=== PATIENT | female | born 1980 | race Caucasian/White ===

== ENCOUNTER 2024-05-05 13:42 | Outpatient (CLI) | payer MEDICAID, SELFPAY ==
[2024-05-05] VITALS (7 sets, daily range): BP systolic 133–161; BP diastolic 77–98; PULSE 100–112; RESP 16; O2SAT 99–100
--- NOTE | 2024-05-05 14:57 | P.GSCN_ITS ---
History of Present Illness Consult details Date Seen: 05/05/24 Consult date: 05/05/24 Narrative: Patient is a 43-year-old female with a history of alcoholic cirrhosis who presents with abdominal ascites. She is followed by [facility] with recommendations for paracentesis. She does usually get this performed on a weekly basis down in [place]. She was scheduled to have it done on Thursday but they had no openings in their clinic. She has never had any issues was fluid removed before. She usually has around 6 L removed per time. Her abdominal surgical history is positive for x2. She denies any new abdominal pain or fevers. Her biggest complaint is abdominal discomfort and shortness of breath. Review of Systems Status of ROS: Reports: 6 or more systems reviewed and unremarkable except as noted in History and below Meds Home Medications and Allergies Allergies Allergy/AdvReac Type Severity Reaction Status Date / Time clonazepam Allergy Verified 05/05/24 14:14 NSAIDS (Non-Steroidal Allergy Verified 05/05/24 14:14 Anti-Inflamma shellfish derived Allergy Verified 05/05/24 14:14 Sulfa (Sulfonamide Allergy Verified 05/05/24 14:14 Antibiotics) Exam Narrative: Exam Narrative: General: Alert and oriented, no acute distress. HEENT: Scleral icterus Abdomen: Obese abdomen, edema of the abdominal wall, positive fluid shift consistent with ascites. Results Labs Labs: Labs from 04/27/2024 reviewed. Hemoglobin 10.3, platelets 92. INR 1.4 General Surgery Procedures Paracentesis Time out performed: Yes Imaging guidance used: Yes Indication: Ascites Procedure: therapeutic paracentesis Location: RLQ Local anesthetic used: lidocaine 1% Bedside ultrasound used: yes, Ascites confirmed and location marked Preparation: 11 blade used to make rachel in skin Amount of fluid obtained (ml): 5,900 Fluid: other (Serous) Post procedure exam: awake, alert, normal BP, normal HR and normal SpO2 Patient tolerated procedure: well Complications: none Additional comments: Vial of albumin given. Progress Note:A&P Assessment and plan (1) Abdominal ascites: Status: Acute Assessment and Plan: Patient presents for paracentesis. She has a history of ascites secondary to alcoholic liver disease. Risks and benefits of procedure were discussed at length with the patient. Risks included, but were not limited to: Bleeding, infection, risk of damage to underlying structures and possible need for additional procedures. All questions and concerns were addressed with patient agreeing to proceed. Patient tolerated procedure well. A total of 5.9 L was removed. She was instructed to present to the emergency department with any new onset abdominal pain or fevers.
[2024-05-05] MEDS: ALBUMIN HUMAN 25% 100 ML VIAL IV (15:17)
== END 2024-05-05 15:18 | disposition home or self-care (01) ==
LOC: US 13:43
PROVIDERS: PCP Nurse Practitioner Family; Visit Provider Surgery
DX: K70.31 Alcoholic cirrhosis of liver with ascites (principal)
CPT/HCPCS: 49083; P9047

== ENCOUNTER 2024-06-20 10:50 | Outpatient (CLI) | payer MEDICAID, SELFPAY ==
[2024-06-20 11:27] VITALS: BP 157/84; PULSE 107; TEMP 36.5; O2SAT 96
[2024-06-20 12:01] VITALS: BP 132/57; PULSE 98; RESP 18; O2SAT 98
[2024-06-20 12:10] VITALS: BP 122/66; PULSE 103; RESP 18; O2SAT 97
--- NOTE | 2024-06-20 12:13 | P.PCN_ITS ---
Procedure Note Time Seen by Provider: 12:13 Date Seen: 06/20/24 Provider Contact Time: 12:13 Date of procedure: 06/20/24 Will [facility] bill your pro fee for this procedure?: Yes Pre-op diagnosis: Ascites Post-op diagnosis: same Procedure: Paracentesis Procedure Description: With the patient in the recumbent position we did localize ascites particularly in the right hemiabdomen with direct ultrasound guidance. The area was then sterilely prepared and anesthetized with 1% lidocaine. I made a 1 cm incision through which I inserted the paracentesis needle and catheter into the area of ascites. Flow was directed to a series of back in her bowels until 3 L have been removed. The catheter was then removed and the incision was sterilely closed with Vicryl and Dermabond. Patient did receive 2 units of albumin during her paracentesis. Anesthesia: none Surgeon: Feroz Estimated blood loss (mL): 5 Pathology: specimen obtained, sent to pathology Condition: stable Disposition: other
[2024-06-20] MEDS: ALBUMIN HUMAN 25% 100 ML VIAL IVPB (12:15)
[2024-06-20] MEDS: ALBUMIN HUMAN 25% 25 GM/100 ML VIAL IVPB (13:33)
[2024-06-20 13:41] LABS: BF Clarity* Slightly Cloudy; BF Color Blood Tinged; BF Total Volume* 5
[2024-06-20 13:42] LABS: Mononuclear WBC Body Fluid* 87 %; Polynuclear WBC Body Fluid* 13 %; RBC, Body Fluid* 15000 Cells/uL; WBC, Body Fluid* 190 Cells/uL
[2024-06-20 13:53] LABS: Albumin Body Fluid* < 0.1 gm/dL; Amylase Body Fluid* < 30 U/L; Body Fluid Total Protein* < 0.2 gm/dL; Glucose Body Fluid* 186 mg/dL; LDH Body Fluid* 71 U/L
== END 2024-06-20 12:42 | disposition home or self-care (01) ==
LOC: US 10:51
PROVIDERS: Internal Medicine; PCP Nurse Practitioner Family; Visit Provider Surgery
DX: K70.31 Alcoholic cirrhosis of liver with ascites (principal)
CPT/HCPCS: 49083; 80053; 82042; 82150; 82945; 83615; 84155; 84157; 85025; 87070; 87205; 88112; 88305; 89051; P9047

== ENCOUNTER 2024-07-13 11:14 | Outpatient (CLI) | payer MEDICAID, SELFPAY ==
[2024-07-13 11:24] VITALS: BP 143/83; PULSE 82; RESP 16; TEMP 36.4; O2SAT 94
--- NOTE | 2024-07-13 11:47 | W.PM.PARA ---
Paracentesis Date Date: 07/13/24 Procedure Note Procedure: Paracentesis with Ultrasound Guidance Type of paracentesis: Therapeutic Initial or Repeat?: Repeat Surgeon: Luz Hines Indications: The patient is a 43-year-old female with alcoholic cirrhosis and ascites. She has been undergoing paracentesis for symptomatic management. Most recent paracentesis was done on 07/07/2024 in [place]. 5.3 L were removed at that time. The patient continues to complain of abdominal distension and fluid reaccumulation and she presents for repeat paracentesis. Risks and benefits were discussed with the patient and she agreed to proceed. On exam, vital signs are stable with normal heart rate and blood pressure. Abdomen is markedly protuberant however not tense. Labs and Cytology Sent:: No Albumin infused: Yes ( One bottle of 25% albumin was infused.) Procedure Note:: Prior to the procedure, the risks and benefits of the procedure were discussed and an informed consent was obtained. Patient identification was confirmed and TIME OUT was performed. An ultrasound was brought onto the field and an easily accessible pocket of ascites was identified that was away from intraabdominal organs. The patient's abdomen in the The right upper/ lateral abdomen was prepped and draped in the usual sterile fashion. 1% Lidocaine was used to anesthetize the skin, soft tissues and peritoneum over the proposed needle insertion site. The patient's abdominal wall was fairly thick and a spinal needle was used to anesthetize the peritoneum. This was done under ultrasound guidance. A skin incision was made with a scalpel just large enough to fit the needle. The needle with the paracentesis catheter was advanced into the abdomen under ultrasound guidance until ascitic fluid was aspirated into the syringe. The needle was then withdrawn and the catheter was left in place. The catheter was then connected to the drainage tubing. 3.7 Liters of straw-colored fluid was drained. The catheter was then removed and the skin was closed with Dermabond and an absorbable 5 0 Monocryl stitch. Patient tolerated procedure well and there were no immediate complications. Patient's vital signs were stable throughout the procedure. Recomendation: Discharge to home (ambulatory) and return to normal activities tomorrow. Follow up with referring provider as needed. I recommend waiting at least 1 week between paracentesis in the future to maximize benefit and decrease risk of the patient.
[2024-07-13 12:00] VITALS: BP 105/55; PULSE 78; RESP 16; O2SAT 93
[2024-07-13 12:15] VITALS: BP 117/69; PULSE 78; RESP 18; O2SAT 95
[2024-07-13] MEDS: ALBUMIN HUMAN 25% 25 GM/100 ML VIAL IVPB (12:15)
[2024-07-13 12:30] VITALS: BP 109/56; PULSE 78; RESP 18; O2SAT 95
[2024-07-13 12:41] VITALS: BP 123/64; PULSE 77; RESP 16; O2SAT 93
== END 2024-07-13 12:50 | disposition home or self-care (01) ==
LOC: US 11:14
PROVIDERS: PCP Nurse Practitioner Family; Visit Provider Surgery
DX: K70.31 Alcoholic cirrhosis of liver with ascites (principal)
CPT/HCPCS: 49083; P9047